=== PATIENT | male | born 1960 | race African-American/Black ===

== ENCOUNTER 2017-10-06 11:10 | Emergency (ER) | payer MEDICAID ==
[~2017-10-06] VITALS: Ht 182.9 cm; Wt 70.3 kg
[2017-10-06 11:57] LABS: Basophils # (auto) 0.1 uL; Eosinophils # (auto) 0 uL; Hemoglobin 11.2 g/dL (13.5-17.5); Monocytes # (auto) 1.2 uL; Neutrophils # (auto) 12.6 uL
[2017-10-06] MEDS: METOCLOPRAMIDE HCL 5MG/ml INJ 2ml VIAL IV ONE (11:57)
[2017-10-06] MEDS: SODIUM CHLORIDE 0.9% 1,000 ML IV ONE (11:57)
[2017-10-06] MEDS: HYDROmorphone HCL 2 MG/ML VL IV ONE (11:57)
[2017-10-06 11:58] LABS: Basophils % (auto) 0.7 % (0.0-2.0); Eosinophils % (auto) 0.2 % (0.0-7.0); Lymphocytes % (auto) 6.8 % (10.0-50.0); Mean Corpuscular Hemoglobin 27.1 pg (28.0-32.0); Mean Corpuscular Volume 84.5 fL (80.0-100.0); Mean Platelet Volume 6.8 fL (6.9-10.8); Neutrophils % (auto) 84.3 % (37.0-80.0); Platelet Count (auto) 360 10^3/uL (140-450); White Blood Cell 14.9 10^3/uL (4.4-10.8)
[2017-10-06 12:11] LABS: INR 1.19 (0.9-1.15); Partial Thromboplastin Time 28.2 sec (22.64-33.71)
[2017-10-06 12:17] LABS: Albumin 3.1 g/dL (3.4-5.0); Alkaline Phosphatase 429 U/L (45-117); Anion Gap 15 (5-15); Aspartate Aminotransferase 192 U/L (15-37); BUN/Creatinine Ratio 13.8; Bilirubin, Total 1.3 mg/dL (0.2-1.0); Blood Urea Nitrogen 11 mg/dL (7-18); Calcium 8.8 mg/dL (8.5-10.1); Carbon Dioxide 18 mmol/L (21-32); Chloride 105 mmol/L (98-107); GFR African American 129 mL/min; GFR Non-African American 107 mL/min; Glucose 103 mg/dL (74-106); Potassium 3.4 mmol/L (3.5-5.1); Sodium 138 mmol/L (136-145); Total Protein 8.5 g/dL (6.4-8.2)
[2017-10-06] MEDS: POTASSIUM CHL 10% (20 MEQ/15ML) 15ml ORAL SOLN PO ONE (12:39)
[2017-10-06 13:36] LABS: Urine Bilirubin Negative (Negative); Urine Blood 2+ /uL (Negative); Urine Color Yellow (Yellow); Urine Glucose Normal (Normal); Urine Ketone 1+ (Negative); Urine Mucus FEW (None Seen); Urine Nitrite Negative (Negative); Urine RBC 423 /hpf (0 - 3); Urine Squamous Epithelial Cell FEW /hpf (<5); Urine Urobilinogen Normal (Negative)
[2017-10-06] MEDS: IOHEXOL 350 MG/ML 100ML IJ ONE (13:40)
[2017-10-06 15:15] VITALS: BP 113/67
== END 2017-10-06 15:25 | disposition home or self-care (01) ==
LOC: ER 11:10
DX: C79.51 Secondary malignant neoplasm of bone (principal); C78.7 Secondary malignant neoplasm of liver and intrahepatic bile duct; E87.6 Hypokalemia; C61 Malignant neoplasm of prostate; J45.909 Unspecified asthma, uncomplicated; E44.1 Mild protein-calorie malnutrition; R74.8 Abnormal levels of other serum enzymes
CPT/HCPCS: 36415; 71010; 71275; 80053; 81001; 83735; 84484; 85025; 85379; 85610; 85730; 93005; 94761; 96374; 96375; 99285; J1170; J2765; J7030; Q9967

== ENCOUNTER 2017-10-23 08:17 | Inpatient (IN) | payer MEDICAID ==
[~2017-10-23] VITALS: Ht 190.5 cm; Wt 69.7 kg
[2017-10-23 10:09] LABS: Basophils # (auto) 0 uL; Basophils % (auto) 0.2 % (0.0-2.0); Eosinophils # (auto) 0 uL; Eosinophils % (auto) 0.2 % (0.0-7.0); Hemoglobin 7.4 g/dL (13.5-17.5); Monocytes # (auto) 2.2 uL; Monocytes % (auto) 12.7 % (0.0-12.0); White Blood Cell 17.1 10^3/uL (4.4-10.8)
[2017-10-23 10:12] LABS: Hematocrit 22.4 % (41.0-53.0); Mean Corpuscular Hemoglobin 26.8 pg (28.0-32.0); Mean Corpuscular Hgb Conc. 32.9 g/dL (32.0-36.0); Mean Corpuscular Volume 81.5 fL (80.0-100.0); Neutrophils # (auto) 13.9 uL; Neutrophils % (auto) 80.9 % (37.0-80.0); Platelet Count (auto) 548 10^3/uL (140-450); Red Blood Cells 2.74 10^6/uL (4.5-5.90); Red Cell Distribution Width 18.7 % (11.8-14.3)
[2017-10-23 10:24] LABS: Alanine Aminotransferase 10 U/L (16-61); Albumin 2.2 g/dL (3.4-5.0); Alkaline Phosphatase 382 U/L (45-117); Anion Gap 13 (5-15); Aspartate Aminotransferase 40 U/L (15-37); BUN/Creatinine Ratio 16.3; Blood Urea Nitrogen 8 mg/dL (7-18); Calcium 8.2 mg/dL (8.5-10.1); Carbon Dioxide 25 mmol/L (21-32); Chloride 96 mmol/L (98-107); GFR African American 227 mL/min; GFR Non-African American 188 mL/min; Glucose 65 mg/dL (74-106); Magnesium 2.5 mg/dL (1.6-2.6); Potassium 3.9 mmol/L (3.5-5.1); Sodium 134 mmol/L (136-145); Total Protein 7.9 g/dL (6.4-8.2)
[2017-10-23] MEDS ORDERED: SODIUM CHLORIDE 0.9% 1,000 ML IV ONE ×2 (10:55)
[2017-10-23] MEDS ORDERED: ONDANSETRON HCL 4 MG/2 ML VIAL IV ONE (11:00)
[2017-10-23] MEDS ORDERED: PIPERACILLIN-TAZOB 3.375GM 50 ML IV ONE (11:00)
[2017-10-23] MEDS ORDERED: HYDROmorphone HCL 2 MG/ML VL IV ONE (11:00)
[2017-10-23] MEDS ORDERED: NITROGLYCERIN 0.4 MG SL TAB SL PRN (11:30)
[2017-10-23] MEDS ORDERED: ALBUTEROL SULF 2.5 MG/0.5ML(0.5%) NEB SOLN NEB PRN (11:30)
[2017-10-23] MEDS ORDERED: VANCOMYCIN PER PHARMACY 0 MG IV SCH (11:30)
[2017-10-23] MEDS ORDERED: MORPHINE SULF INJ 2 MG/ML SYRINGE 1ML IV PRN ×2 (11:30)
[2017-10-23] MEDS ORDERED: TEMAZEPAM 15 MG CAP PO PRN (11:30)
[2017-10-23] MEDS ORDERED: VANCOMYCIN 1GM/250ML 250 ML IV ONE (11:30)
[2017-10-23] MEDS ORDERED: AZITHROMYCIN 500MG/ 250ML 250 ML IV ONE ×2 (11:30→12:15)
[2017-10-23] MEDS ORDERED: LACTULOSE 20Gm/30ML SOLN PO PRN (11:30)
[2017-10-23] MEDS ORDERED: IOHEXOL 300 MG/ML 100ML BOTTLE IJ ONE (11:31)
[2017-10-23] MEDS: SODIUM CHLORIDE 0.9% 1,000 ML IV SCH ×2 (13:23→20:09)
[2017-10-23 13:24] LABS: CRP High Sensitivity 26.82 mg/dL (< 0.3)
[2017-10-23 15:20] LABS: Urine Bacteria NONE SEEN /hpf (None Seen); Urine Blood 3+ /uL (Negative); Urine Mucus FEW (None Seen); Urine WBC 3 /hpf (0 - 3)
[2017-10-23 15:33] LABS: Urine Specific Gravity > 1.050 (1.001-1.035)
[2017-10-23] MEDS: HYDROmorphone HCL 2 MG/ML VL IV PRN ×2 (15:41→20:09)
[2017-10-23] MEDS: VANCOMYCIN 1GM/250ML 250 ML IV SCH (15:59)
[2017-10-23] MEDS ORDERED: ONDA4TAB5 PO (16:36)
[2017-10-23] MEDS ORDERED: OXY10CRT PO (16:36)
[2017-10-23] MEDS ORDERED: PRE5T PO (16:36)
[2017-10-23] MEDS ORDERED: ABIR250T PO (16:36)
[2017-10-23] MEDS ORDERED: MORP30TA PO (16:36)
[2017-10-23] MEDS ORDERED: PRO10T PO (16:36)
[2017-10-23] MEDS ORDERED: CIPR-217 PO (16:36)
[2017-10-23 16:57] VITALS: BP 113/65
[2017-10-23] MEDS: PIPERACILLIN-TAZOB 3.375GM 50 ML IV SCH ×2 (17:45→22:53)
[2017-10-23] MEDS: ALBUTEROL SULF 2.5 MG/0.5ML(0.5%) NEB SOLN NEB SCH (18:00)
[2017-10-23] MEDS: PROMETHAZINE HCL 25 MG/ML 1ML IV PRN (20:18)
[2017-10-23] MEDS: MORPHINE SULF 30 mg ER tab PO SCH (21:48)
[2017-10-23 22:13] VITALS: BP 120/70
[2017-10-24] VITALS (8 sets, daily range): BP systolic 104–116; BP diastolic 64–72
[2017-10-24] MEDS: ALBUTEROL SULF 2.5 MG/0.5ML(0.5%) NEB SOLN NEB SCH ×4 (00:49→18:44)
[2017-10-24] MEDS: PROMETHAZINE HCL 25 MG/ML 1ML IV PRN ×5 (00:49→18:31)
[2017-10-24] MEDS: HYDROmorphone HCL 2 MG/ML VL IV PRN ×7 (00:49→22:10)
[2017-10-24] MEDS: VANCOMYCIN 1GM/250ML 250 ML IV SCH ×2 (01:39→14:00)
[2017-10-24] MEDS: SODIUM CHLORIDE 0.9% 1,000 ML IV SCH ×3 (04:28→21:17)
[2017-10-24] MEDS: PIPERACILLIN-TAZOB 3.375GM 50 ML IV SCH ×4 (05:05→22:54)
[2017-10-24 07:14] LABS: Albumin 1.9 g/dL (3.4-5.0); BUN/Creatinine Ratio 12.5; Bilirubin, Total 0.6 mg/dL (0.2-1.0); Calcium 7.9 mg/dL (8.5-10.1); Potassium 3.5 mmol/L (3.5-5.1); Total Protein 7.1 g/dL (6.4-8.2)
[2017-10-24 07:56] LABS: Basophils # (auto) 0 uL; Basophils % (auto) 0.3 % (0.0-2.0); Eosinophils # (auto) 0.1 uL; Lymphocytes # (auto) 0.8 uL; Lymphocytes % (auto) 7.6 % (10.0-50.0); Monocytes # (auto) 1.4 uL
[2017-10-24 07:59] LABS: Eosinophils % (auto) 1.1 % (0.0-7.0); Hematocrit 20.8 % (41.0-53.0); Mean Corpuscular Hemoglobin 26.7 pg (28.0-32.0); Mean Corpuscular Hgb Conc. 32.7 g/dL (32.0-36.0); Mean Corpuscular Volume 81.8 fL (80.0-100.0); Monocytes % (auto) 13.1 % (0.0-12.0); Neutrophils # (auto) 8.3 uL; Neutrophils % (auto) 77.9 % (37.0-80.0); Platelet Count (auto) 492 10^3/uL (140-450); Red Blood Cells 2.54 10^6/uL (4.5-5.90); Red Cell Distribution Width 19.2 % (11.8-14.3); White Blood Cell 10.6 10^3/uL (4.4-10.8)
[2017-10-24 08:21] LABS: Hemoglobin 6.8 g/dL (13.5-17.5)
[2017-10-24] MEDS: MORPHINE SULF 30 mg ER tab PO SCH ×2 (10:06→21:17)
[2017-10-24] MEDS: AZITHROMYCIN 500MG/ 250ML 250 ML IV SCH (10:07)
[2017-10-24] MEDS: LORazepam 0.5 MG TAB PO PRN ×2 (10:22→16:04)
[2017-10-25] VITALS (11 sets, daily range): BP systolic 104–132; BP diastolic 67–83
[2017-10-25] MEDS: ALBUTEROL SULF 2.5 MG/0.5ML(0.5%) NEB SOLN NEB SCH ×4 (00:21→19:55)
[2017-10-25] MEDS: PROMETHAZINE HCL 25 MG/ML 1ML IV PRN ×3 (01:45→16:32)
[2017-10-25] MEDS: HYDROmorphone HCL 2 MG/ML VL IV PRN ×6 (01:45→20:09)
[2017-10-25] MEDS: VANCOMYCIN 1GM/250ML 250 ML IV SCH (01:45)
[2017-10-25] MEDS: SODIUM CHLORIDE 0.9% 1,000 ML IV SCH ×2 (04:16→12:30)
[2017-10-25] MEDS: PIPERACILLIN-TAZOB 3.375GM 50 ML IV SCH ×4 (05:06→23:45)
[2017-10-25 06:34] LABS: Eosinophils # (auto) 0.1 uL; Hematocrit 28.5 % (41.0-53.0); Hemoglobin 9.3 g/dL (13.5-17.5); Red Cell Distribution Width 18.1 % (11.8-14.3)
[2017-10-25 06:35] LABS: Basophils # (auto) 0.1 uL; Basophils % (auto) 0.4 % (0.0-2.0); Eosinophils % (auto) 0.5 % (0.0-7.0); Lymphocytes % (auto) 6.3 % (10.0-50.0); Mean Corpuscular Hemoglobin 26.8 pg (28.0-32.0); Mean Corpuscular Hgb Conc. 32.5 g/dL (32.0-36.0); Mean Corpuscular Volume 82.6 fL (80.0-100.0); Monocytes # (auto) 1.8 uL; Monocytes % (auto) 11.6 % (0.0-12.0); Neutrophils # (auto) 12.8 uL; Neutrophils % (auto) 81.2 % (37.0-80.0); Platelet Count (auto) 532 10^3/uL (140-450); Red Blood Cells 3.45 10^6/uL (4.5-5.90); White Blood Cell 15.8 10^3/uL (4.4-10.8)
[2017-10-25] MEDS: VANCOMYCIN 1,250 MG in D5W 5% 250 ML IV SCH ×2 (08:13→20:00)
[2017-10-25] MEDS: MORPHINE SULF 30 mg ER tab PO SCH ×2 (09:36→22:00)
[2017-10-25] MEDS: AZITHROMYCIN 500MG/ 250ML 250 ML IV SCH (09:37)
[2017-10-26] MEDS: ALBUTEROL SULF 2.5 MG/0.5ML(0.5%) NEB SOLN NEB SCH ×4 (00:10→18:40)
[2017-10-26] MEDS: PROMETHAZINE HCL 25 MG/ML 1ML IV PRN ×5 (00:22→22:09)
[2017-10-26] MEDS: HYDROmorphone HCL 2 MG/ML VL IV PRN ×7 (00:23→21:14)
[2017-10-26] MEDS: SODIUM CHLORIDE 0.9% 1,000 ML IV SCH ×3 (03:33→16:14)
[2017-10-26 04:59] VITALS: BP 121/70
[2017-10-26] MEDS: PIPERACILLIN-TAZOB 3.375GM 50 ML IV SCH (05:00)
[2017-10-26 06:33] LABS: Albumin 2.1 g/dL (3.4-5.0); BUN/Creatinine Ratio 3.6; Bilirubin, Total 1.2 mg/dL (0.2-1.0); Calcium 8.3 mg/dL (8.5-10.1); Potassium 3.2 mmol/L (3.5-5.1); Total Protein 7.9 g/dL (6.4-8.2)
[2017-10-26 07:44] VITALS: BP 113/68
[2017-10-26 08:00] VITALS: BP 113/68
[2017-10-26] MEDS: VANCOMYCIN 1,250 MG in D5W 5% 250 ML IV SCH (08:36)
[2017-10-26] MEDS: MORPHINE SULF 30 mg ER tab PO SCH ×2 (11:29→22:00)
[2017-10-26] MEDS: AZITHROMYCIN 500MG/ 250ML 250 ML IV SCH (11:29)
[2017-10-26 11:55] VITALS: BP 112/63
[2017-10-26] MEDS: metroNIDAZOLE 500 MG TAB PO SCH ×2 (13:44→22:10)
[2017-10-26 17:03] VITALS: BP 134/73
[2017-10-26] MEDS: BOOST PLUS 8 ounce PO SCH (19:00)
[2017-10-26 21:55] VITALS: BP 112/63
[2017-10-26] MEDS ORDERED: MORPHINE SULFATE 4 MG/ML SYR/VIAL ONE (22:43)
[2017-10-27] VITALS (7 sets, daily range): BP systolic 103–134; BP diastolic 63–79
[2017-10-27] MEDS: HYDROmorphone HCL 2 MG/ML VL IV PRN ×6 (01:09→18:04)
[2017-10-27] MEDS: SODIUM CHLORIDE 0.9% 1,000 ML IV SCH ×3 (02:16→11:22)
[2017-10-27] MEDS: PROMETHAZINE HCL 25 MG/ML 1ML IV PRN ×3 (03:59→18:03)
[2017-10-27] MEDS: metroNIDAZOLE 500 MG TAB PO SCH ×2 (06:15→13:14)
[2017-10-27 06:26] LABS: Basophils # (auto) 0 uL; Basophils % (auto) 0.2 % (0.0-2.0); Eosinophils # (auto) 0.1 uL; Hematocrit 29.1 % (41.0-53.0); Monocytes # (auto) 1.6 uL
[2017-10-27 06:29] LABS: Eosinophils % (auto) 0.8 % (0.0-7.0); Hemoglobin 9.1 g/dL (13.5-17.5); Lymphocytes # (auto) 0.9 uL; Mean Corpuscular Hemoglobin 26.3 pg (28.0-32.0); Mean Corpuscular Hgb Conc. 31.4 g/dL (32.0-36.0); Mean Corpuscular Volume 83.9 fL (80.0-100.0); Neutrophils # (auto) 9.8 uL; Nucleated Red Blood Cells % 0.1 %; Platelet Count (auto) 454 10^3/uL (140-450); Red Blood Cells 3.47 10^6/uL (4.5-5.90); Red Cell Distribution Width 18.4 % (11.8-14.3); White Blood Cell 12.4 10^3/uL (4.4-10.8)
[2017-10-27] MEDS: ALBUTEROL SULF 2.5 MG/0.5ML(0.5%) NEB SOLN NEB SCH ×3 (06:48→13:41)
[2017-10-27 07:42] LABS: Potassium 3.6 mmol/L (3.5-5.1)
[2017-10-27 07:43] LABS: Albumin 2.1 g/dL (3.4-5.0); Bilirubin, Total 1.1 mg/dL (0.2-1.0); Calcium 8.2 mg/dL (8.5-10.1); Total Protein 7.9 g/dL (6.4-8.2)
[2017-10-27] MEDS: BOOST PLUS 8 ounce PO SCH ×2 (08:00→18:23)
[2017-10-27] MEDS ORDERED: MORPHINE SULFATE 10 MG/ML INJ 1ML SDV IV PRN ×2 (09:15)
[2017-10-27] MEDS: MORPHINE SULF 30 mg ER tab PO SCH (10:00)
== END 2017-10-27 20:50 | disposition home or self-care (01) | DRG 720 ==
LOC: ER 08:17 → EDUNIT# 08:17 → TELE 08:18 → TELE-EAST 15:24
PROVIDERS: ADMIT Internal Medicine; ATTEND Internal Medicine
PROC: 30233N1 Transfusion of Nonautologous Red Blood Cells into Peripheral Vein, Percutaneous Approach (ICD-10-PCS; principal; 2017-10-24)
DX: A41.9 Sepsis, unspecified organism (principal); E43 Unspecified severe protein-calorie malnutrition; C78.00 Secondary malignant neoplasm of unspecified lung; A04.72 Enterocolitis due to Clostridium difficile, not specified as recurrent; C61 Malignant neoplasm of prostate; C78.7 Secondary malignant neoplasm of liver and intrahepatic bile duct; D64.9 Anemia, unspecified; C79.51 Secondary malignant neoplasm of bone; E87.1 Hypo-osmolality and hyponatremia; J45.909 Unspecified asthma, uncomplicated; N50.819 Testicular pain, unspecified; R31.0 Gross hematuria; Z81.8 Family history of other mental and behavioral disorders; Z82.3 Family history of stroke; Z82.49 Family history of ischemic heart disease and other diseases of the circulatory system; Z83.3 Family history of diabetes mellitus; Z85.46 Personal history of malignant neoplasm of prostate; Z88.5 Allergy status to narcotic agent; Z68.1 Body mass index [BMI] 19.9 or less, adult
CPT/HCPCS: 36415; 71010; 74177; 78306; 80053; 80202; 81001; 82150; 82270; 82378; 83605; 83690; 83735; 84154; 84484; 85025; 85652; 86141; 86850; 86900; 86901; 86920; 87040; 87081; 87086; 87493; 93005; 94640; 96365; 96367; 96372; 99291; J1642; J2405; J2543; J7060

== ENCOUNTER 2017-12-04 07:20 | Inpatient (IN) | payer MEDICAID ==
[~2017-12-04] VITALS: Ht 182.9 cm; Wt 65.2 kg
[~2017-12-04 07:20] MED LIST: ABIR250T PO; CIPR-217 PO; MORP30TA PO; ONDA4TAB5 PO; OXY10CRT PO; PRE5T PO; PRO10T PO
[2017-12-04 07:58] LABS: Basophils # (auto) 0.1 uL; Basophils % (auto) 0.7 % (0.0-2.0); Eosinophils # (auto) 0.1 uL; Hemoglobin 8.2 g/dL (13.5-17.5); Mean Corpuscular Volume 83.7 fL (80.0-100.0); Monocytes # (auto) 1.2 uL
[2017-12-04 08:00] LABS: Eosinophils % (auto) 0.7 % (0.0-7.0); Hematocrit 26.1 % (41.0-53.0); Lymphocytes # (auto) 1.2 uL; Lymphocytes % (auto) 8.3 % (10.0-50.0); Mean Corpuscular Hemoglobin 26.2 pg (28.0-32.0); Mean Corpuscular Hgb Conc. 31.3 g/dL (32.0-36.0); Monocytes % (auto) 8.7 % (0.0-12.0); Neutrophils # (auto) 11.6 uL; Neutrophils % (auto) 81.6 % (37.0-80.0); Platelet Count (auto) 590 10^3/uL (140-450); Red Blood Cells 3.11 10^6/uL (4.5-5.90); Red Cell Distribution Width 18.7 % (11.8-14.3); White Blood Cell 14.2 10^3/uL (4.4-10.8)
[2017-12-04 08:14] LABS: Alanine Aminotransferase 18 U/L (16-61); Albumin 1.7 g/dL (3.4-5.0); Anion Gap 11 (5-15); Aspartate Aminotransferase 97 U/L (15-37); BUN/Creatinine Ratio 26.5; Blood Urea Nitrogen 39 mg/dL (7-18); Calcium 9.2 mg/dL (8.5-10.1); Carbon Dioxide 25 mmol/L (21-32); Chloride 97 mmol/L (98-107); GFR African American 64 mL/min; GFR Non-African American 53 mL/min; Glucose 96 mg/dL (74-106); Magnesium 2.6 mg/dL (1.6-2.6); Potassium 4.4 mmol/L (3.5-5.1); Sodium 133 mmol/L (136-145)
[2017-12-04 08:29] LABS: Alkaline Phosphatase 933 U/L (45-117); Bilirubin, Total 1.2 mg/dL (0.2-1.0); Total Protein 8.2 g/dL (6.4-8.2)
[2017-12-04] MEDS ORDERED: SODIUM CHLORIDE 0.9% 1,000 ML IV ONE (08:46)
[2017-12-04] MEDS ORDERED: HYDROmorphone HCL 2 MG/ML VL IV ONE (09:00)
[2017-12-04] MEDS ORDERED: METOCLOPRAMIDE HCL 5MG/ml INJ 2ml VIAL IV ONE (09:00)
[2017-12-04] MEDS ORDERED: MORPHINE SULFATE 4 MG/ML SYR/VIAL IV ONE ×2 (09:45→11:20)
[2017-12-04] MEDS ORDERED: ONDANSETRON HCL 4 MG/2 ML VIAL ONE (10:03)
[2017-12-04] MEDS ORDERED: ONDANSETRON HCL 4 MG/2 ML VIAL IV ONE (10:15)
[2017-12-04 10:54] LABS: Urine Bacteria NONE SEEN /hpf (None Seen); Urine Blood Negative /uL (Negative); Urine Specific Gravity 1.017 (1.001-1.035); Urine WBC 1 /hpf (0 - 3)
[2017-12-04] MEDS ORDERED: MORPHINE SULFATE 4 MG/ML SYR/VIAL IV PRN ×2 (15:00)
[2017-12-04] MEDS ORDERED: ALBUTEROL SULF 2.5 MG/0.5ML(0.5%) NEB SOLN NEB PRN (15:00)
[2017-12-04] MEDS ORDERED: LORazepam 0.5 MG TAB PO PRN (15:00)
[2017-12-04] MEDS ORDERED: TEMAZEPAM 15 MG CAP PO PRN (15:00)
[2017-12-04] MEDS ORDERED: NITROGLYCERIN 0.4 MG SL TAB SL PRN (15:00)
[2017-12-04] MEDS ORDERED: MORPHINE SULFATE 4 MG/ML SYR/VIAL ONE (15:01)
[2017-12-04] MEDS ORDERED: PROMETHAZINE HCL 25 MG/ML 1ML ONE (15:02)
[2017-12-04] MEDS: PROMETHAZINE HCL 25 MG/ML 1ML IV PRN (15:14)
[2017-12-04] MEDS: MORPHINE SULFATE 4 MG/ML SYR/VIAL IV PRN ×2 (15:15→19:58)
[2017-12-04] MEDS ORDERED: predniSONE 5 MG TAB PO ONE (15:15)
[2017-12-04] MEDS ORDERED: ASPirin 81 mg TAB PO ONE (15:30)
[2017-12-04] MEDS ORDERED: LEVOFLOXACIN 500MG 100 ML IV ONE (15:30)
[2017-12-04] MEDS ORDERED: PANTOPRAZOLE 40 MG TAB PO ONE (15:30)
[2017-12-04 15:31] LABS: Alcohol, Urine < 3.0 mg/dL (0-5); Amphetamine Screen, Urine NEGATIVE (NEGATIVE); Barbiturate Scree,Urine NEGATIVE (NEGATIVE); Benzodiazephine Screen, Urine NEGATIVE (NEGATIVE); Cannabinoid Screen, Urine NEGATIVE (NEGATIVE); Cocaine Screen, Urine NEGATIVE (NEGATIVE); Opiate Scree,Urine NEGATIVE (NEGATIVE); Phencyclidine Screen, Urine NEGATIVE (NEGATIVE)
[2017-12-04 15:34] LABS: Amylase 22 U/L (25-115); Lipase 62 U/L (73-393)
[2017-12-04 15:35] LABS: CRP High Sensitivity > 19.0 mg/dL (< 0.3)
[2017-12-04 17:00] VITALS: BP 118/73
[2017-12-04] MEDS: ALBUTEROL SULF 2.5 MG/0.5ML(0.5%) NEB SOLN NEB SCH (19:00)
[2017-12-04 21:52] VITALS: BP 109/62
[2017-12-04] MEDS ORDERED: PATIENTS OWN MEDICATION (Morphine Sulfate 1 TAB) PO SCH (22:00)
[2017-12-04] MEDS: MORPHINE SULF 30 mg ER tab PO SCH (22:00)
[2017-12-05 02:15] VITALS: BP 109/62
[2017-12-05] MEDS: MORPHINE SULFATE 4 MG/ML SYR/VIAL IV PRN ×4 (03:02→18:32)
[2017-12-05 04:47] VITALS: BP 110/69
[2017-12-05] MEDS: ALBUTEROL SULF 2.5 MG/0.5ML(0.5%) NEB SOLN NEB SCH ×4 (07:44→18:35)
[2017-12-05 08:04] LABS: Cholesterol 125 mg/dL (< 200); HDL Cholesterol 15 mg/dL (40-59); LDL Cholesterol 85 mg/dL (< 100); Triglycerides 185 mg/dL (< 150)
[2017-12-05] MEDS: PROMETHAZINE HCL 25 MG/ML 1ML IV PRN (08:16)
[2017-12-05 09:00] VITALS: BP 114/70
[2017-12-05] MEDS: PANTOPRAZOLE 40 MG TAB PO SCH (09:32)
[2017-12-05] MEDS: MORPHINE SULF 30 mg ER tab PO SCH (09:32)
[2017-12-05] MEDS ORDERED: ASPirin 81 mg TAB PO SCH (10:00)
[2017-12-05] MEDS ORDERED: LEVOFLOXACIN 500MG 100 ML IV SCH (10:00)
[2017-12-05] MEDS ORDERED: predniSONE 5 MG TAB PO SCH (10:00)
[2017-12-05] MEDS ORDERED: ZYTIGA 250 MG PO SCH (10:00)
[2017-12-05 12:43] VITALS: BP 122/71
[2017-12-05] MEDS ORDERED: GADOPENTETATE DIMEGLUMINE (10MMOL/20 ML) VIAL IV ONE (13:51)
[2017-12-05] MEDS: SODIUM CHLORIDE 0.9% 1,000 ML IV SCH (14:30)
[2017-12-05] MEDS ORDERED: LORATADINE 10 MG TAB PO ONE (16:15)
[2017-12-05 16:59] VITALS: BP 111/72
[2017-12-05] MEDS: predniSONE 5 MG TAB PO SCH (18:33)
[2017-12-05] MEDS: SENNA 8.6 MG TAB PO SCH (21:37)
[2017-12-05 21:40] VITALS: BP 121/78
[2017-12-05] MEDS: FLUTICASONE PROP NASAL SPR 0.05 % (50MCG) 16GM EACHNOSTRI SCH (21:43)
[2017-12-05] MEDS ORDERED: MORPHINE SULF 30 mg ER tab PO SCH (22:00)
[2017-12-06] VITALS (13 sets, daily range): BP systolic 116–130; BP diastolic 72–89
[2017-12-06] MEDS: SODIUM CHLORIDE 0.9% 1,000 ML IV SCH ×2 (01:18→11:05)
[2017-12-06] MEDS: MORPHINE SULFATE 4 MG/ML SYR/VIAL IV PRN ×3 (01:23→19:58)
[2017-12-06] MEDS: PROMETHAZINE HCL 25 MG/ML 1ML IV PRN ×2 (02:42→15:19)
[2017-12-06 06:41] LABS: Hemoglobin 7.5 g/dL (13.5-17.5)
[2017-12-06 06:43] LABS: Hematocrit 23.4 % (41.0-53.0); Mean Corpuscular Hemoglobin 27.2 pg (28.0-32.0); Mean Corpuscular Hgb Conc. 32.2 g/dL (32.0-36.0); Mean Corpuscular Volume 84.7 fL (80.0-100.0); Platelet Count (auto) 503 10^3/uL (140-450); Red Blood Cells 2.76 10^6/uL (4.5-5.90); Red Cell Distribution Width 18.4 % (11.8-14.3); White Blood Cell 9.9 10^3/uL (4.4-10.8)
[2017-12-06 07:14] LABS: Band Neutrophils % (manual) 0; Basophils % (manual) 0 (0.0-2.0); Blast Cells 0; Eosinophils % (manual) 0 (0-7); Myelocytes % 0; Promyelocytes % 0; Reactive Lymphocytes 0
[2017-12-06 07:27] LABS: Albumin 1.7 g/dL (3.4-5.0); BUN/Creatinine Ratio 25.6; Bilirubin, Total 0.9 mg/dL (0.2-1.0); Calcium 8.6 mg/dL (8.5-10.1); Total Protein 8.1 g/dL (6.4-8.2)
[2017-12-06] MEDS: ALBUTEROL SULF 2.5 MG/0.5ML(0.5%) NEB SOLN NEB SCH ×4 (07:37→19:34)
[2017-12-06 07:48] LABS: Lymphocytes % (manual) 10 (10.0-50.0); Metamyelocytes % 1; Monocytes % (manual) 6 (0-12)
[2017-12-06 07:49] LABS: Potassium 5.7 mmol/L (3.5-5.1)
[2017-12-06] MEDS: predniSONE 5 MG TAB PO SCH ×2 (08:23→18:22)
[2017-12-06] MEDS: ZYTIGA 250 MG PO SCH (11:05)
[2017-12-06] MEDS: LORATADINE 10 MG TAB PO SCH (11:05)
[2017-12-06] MEDS: FLUTICASONE PROP NASAL SPR 0.05 % (50MCG) 16GM EACHNOSTRI SCH ×2 (11:05→22:21)
[2017-12-06] MEDS: PANTOPRAZOLE 40 MG TAB PO SCH (11:06)
[2017-12-06] MEDS: DOCUSATE SOD 100 MG CAP PO SCH ×2 (11:06→22:16)
[2017-12-06] MEDS: MORPHINE SULF 30 mg ER tab PO SCH ×2 (14:20→22:15)
[2017-12-06] MEDS: SENNA 8.6 MG TAB PO SCH (22:15)
[2017-12-06] MEDS: PRO-STAT 64 30ML PO SCH (22:15)
[2017-12-06] MEDS: BOOST PLUS 8 ounce PO SCH (22:17)
[2017-12-07] MEDS: ALBUTEROL SULF 2.5 MG/0.5ML(0.5%) NEB SOLN NEB SCH ×4 (00:55→19:33)
[2017-12-07 05:19] VITALS: BP 139/88
[2017-12-07 05:48] LABS: Red Cell Distribution Width 17.6 % (11.8-14.3)
[2017-12-07 05:51] LABS: Hematocrit 29.1 % (41.0-53.0); Hemoglobin 9.6 g/dL (13.5-17.5); Mean Corpuscular Hemoglobin 27.6 pg (28.0-32.0); Mean Corpuscular Hgb Conc. 32.9 g/dL (32.0-36.0); Mean Corpuscular Volume 83.7 fL (80.0-100.0); Platelet Count (auto) 464 10^3/uL (140-450); Red Blood Cells 3.47 10^6/uL (4.5-5.90); White Blood Cell 10.9 10^3/uL (4.4-10.8)
[2017-12-07 06:09] LABS: BUN/Creatinine Ratio 21.5; Calcium 8.7 mg/dL (8.5-10.1); Potassium 4.3 mmol/L (3.5-5.1)
[2017-12-07 06:15] LABS: Band Neutrophils % (manual) 0; Basophils % (manual) 0 (0.0-2.0); Blast Cells 0; Eosinophils % (manual) 0 (0-7); Metamyelocytes % 0; Myelocytes % 0; Promyelocytes % 0; Reactive Lymphocytes 0
[2017-12-07] MEDS: MORPHINE SULF 30 mg ER tab PO SCH ×4 (06:22→21:46)
[2017-12-07] MEDS: SODIUM CHLORIDE 0.9% 1,000 ML IV SCH ×2 (06:40→21:46)
[2017-12-07 07:32] VITALS: BP 146/88
[2017-12-07] MEDS: DOCUSATE SOD 100 MG CAP PO SCH ×2 (09:23→21:43)
[2017-12-07] MEDS: PANTOPRAZOLE 40 MG TAB PO SCH (09:23)
[2017-12-07] MEDS: predniSONE 5 MG TAB PO SCH ×2 (09:23→18:06)
[2017-12-07] MEDS: LORATADINE 10 MG TAB PO SCH (09:23)
[2017-12-07] MEDS: BOOST PLUS 8 ounce PO SCH ×2 (09:24→21:45)
[2017-12-07] MEDS: PRO-STAT 64 30ML PO SCH ×2 (09:24→21:46)
[2017-12-07] MEDS: ZYTIGA 250 MG PO SCH (09:25)
[2017-12-07] MEDS: PROMETHAZINE HCL 25 MG/ML 1ML IV PRN (09:34)
[2017-12-07] MEDS: MORPHINE SULFATE 4 MG/ML SYR/VIAL IV PRN (09:36)
[2017-12-07 10:56] LABS: Lymphocytes % (manual) 10 (10.0-50.0); Monocytes % (manual) 16 (0-12)
[2017-12-07] MEDS: FLUTICASONE PROP NASAL SPR 0.05 % (50MCG) 16GM EACHNOSTRI SCH ×2 (11:09→21:44)
[2017-12-07 11:39] VITALS: BP 143/85
[2017-12-07 16:00] VITALS: BP 144/96
[2017-12-07 20:58] VITALS: BP 144/96
[2017-12-07] MEDS: SENNA 8.6 MG TAB PO SCH (21:43)
[2017-12-07 22:00] VITALS: BP 130/91
[2017-12-08] MEDS: ALBUTEROL SULF 2.5 MG/0.5ML(0.5%) NEB SOLN NEB SCH ×4 (00:49→19:37)
[2017-12-08 05:00] VITALS: BP 133/87
[2017-12-08] MEDS: MORPHINE SULF 30 mg ER tab PO SCH ×3 (05:57→21:43)
[2017-12-08] MEDS: predniSONE 5 MG TAB PO SCH ×2 (08:12→18:11)
[2017-12-08 09:00] VITALS: BP 123/75
[2017-12-08] MEDS: PANTOPRAZOLE 40 MG TAB PO SCH (09:04)
[2017-12-08] MEDS: FLUTICASONE PROP NASAL SPR 0.05 % (50MCG) 16GM EACHNOSTRI SCH ×2 (09:04→21:42)
[2017-12-08] MEDS: DOCUSATE SOD 100 MG CAP PO SCH ×2 (09:04→21:39)
[2017-12-08] MEDS: LORATADINE 10 MG TAB PO SCH (09:04)
[2017-12-08] MEDS: ZYTIGA 250 MG PO SCH (09:05)
[2017-12-08] MEDS: BOOST PLUS 8 ounce PO SCH ×2 (09:05→21:43)
[2017-12-08] MEDS: PRO-STAT 64 30ML PO SCH ×2 (09:05→21:43)
[2017-12-08] MEDS: PROMETHAZINE HCL 25 MG/ML 1ML IV PRN ×2 (10:37→18:43)
[2017-12-08] MEDS: MORPHINE SULFATE 4 MG/ML SYR/VIAL IV PRN ×2 (10:38→18:44)
[2017-12-08] MEDS: SODIUM CHLORIDE 0.9% 1,000 ML IV SCH (12:18)
[2017-12-08 13:00] VITALS: BP 130/81
[2017-12-08 17:00] VITALS: BP 130/78
[2017-12-08] MEDS ORDERED: MILK OF MAGNESIA 30ML SUSP PO PRN (19:30)
[2017-12-08] MEDS: SENNA 8.6 MG TAB PO SCH (21:38)
[2017-12-08 22:00] VITALS: BP 128/77
[2017-12-09] MEDS: ALBUTEROL SULF 2.5 MG/0.5ML(0.5%) NEB SOLN NEB SCH ×4 (01:22→19:28)
[2017-12-09 05:00] VITALS: BP 137/90
[2017-12-09] MEDS: MORPHINE SULF 30 mg ER tab PO SCH ×3 (05:01→22:00)
[2017-12-09] MEDS: SODIUM CHLORIDE 0.9% 1,000 ML IV SCH ×2 (05:03→20:35)
[2017-12-09] MEDS: oxyCODONE ER 10 MG TAB PO PRN ×2 (07:53→15:18)
[2017-12-09] MEDS: MORPHINE SULFATE 4 MG/ML SYR/VIAL IV PRN ×8 (08:25→22:45)
[2017-12-09 08:50] VITALS: BP 134/87
[2017-12-09] MEDS: PROMETHAZINE HCL 25 MG/ML 1ML IV PRN ×3 (10:47→20:32)
[2017-12-09 11:42] VITALS: BP 120/76
[2017-12-09] MEDS: BOOST PLUS 8 ounce PO SCH ×2 (12:14→22:02)
[2017-12-09] MEDS: predniSONE 5 MG TAB PO SCH ×2 (12:14→18:00)
[2017-12-09] MEDS: ZYTIGA 250 MG PO SCH (12:14)
[2017-12-09] MEDS: FLUTICASONE PROP NASAL SPR 0.05 % (50MCG) 16GM EACHNOSTRI SCH ×2 (12:14→22:01)
[2017-12-09] MEDS: PRO-STAT 64 30ML PO SCH ×2 (12:15→22:02)
[2017-12-09] MEDS: LORATADINE 10 MG TAB PO SCH (12:15)
[2017-12-09] MEDS: DOCUSATE SOD 100 MG CAP PO SCH ×2 (12:15→22:01)
[2017-12-09] MEDS: PANTOPRAZOLE 40 MG TAB PO SCH (12:15)
[2017-12-09 16:00] VITALS: BP 130/80
[2017-12-09] MEDS: SENNA 8.6 MG TAB PO SCH (22:01)
[2017-12-09 22:28] VITALS: BP 137/85
[2017-12-10] MEDS: ALBUTEROL SULF 2.5 MG/0.5ML(0.5%) NEB SOLN NEB SCH ×4 (00:54→19:47)
[2017-12-10] MEDS: PROMETHAZINE HCL 25 MG/ML 1ML IV PRN ×2 (01:19→10:29)
[2017-12-10] MEDS: MORPHINE SULFATE 4 MG/ML SYR/VIAL IV PRN ×9 (01:19→21:55)
[2017-12-10 04:58] VITALS: BP 134/85
[2017-12-10] MEDS: MORPHINE SULF 30 mg ER tab PO SCH (06:00)
[2017-12-10] MEDS: oxyCODONE ER 10 MG TAB PO PRN (07:35)
[2017-12-10 08:38] VITALS: BP 139/74
[2017-12-10] MEDS ORDERED: MORPHINE SULFATE 4 MG/ML SYR/VIAL IV PRN (09:45)
[2017-12-10] MEDS: FLUTICASONE PROP NASAL SPR 0.05 % (50MCG) 16GM EACHNOSTRI SCH ×2 (10:00→21:15)
[2017-12-10] MEDS: ZYTIGA 250 MG PO SCH (10:00)
[2017-12-10] MEDS: DOCUSATE SOD 100 MG CAP PO SCH ×2 (10:00→21:15)
[2017-12-10] MEDS: BOOST PLUS 8 ounce PO SCH ×2 (10:00→21:09)
[2017-12-10] MEDS: PRO-STAT 64 30ML PO SCH ×2 (10:00→21:09)
[2017-12-10] MEDS: OXYCODONE HCL 5MG TAB PO PRN ×2 (10:21→17:40)
[2017-12-10] MEDS: PYRIDOXINE HCL 50 MG TAB PO SCH (10:29)
[2017-12-10] MEDS: PANTOPRAZOLE 40 MG TAB PO SCH (10:29)
[2017-12-10] MEDS: predniSONE 5 MG TAB PO SCH ×2 (10:29→17:44)
[2017-12-10] MEDS: LORATADINE 10 MG TAB PO SCH (10:30)
[2017-12-10] MEDS: MECLIZINE HCL 25 MG TAB PO SCH ×2 (10:30→21:15)
[2017-12-10 12:18] VITALS: BP 134/78
[2017-12-10] MEDS: SODIUM CHLORIDE 0.9% 1,000 ML IV SCH (12:56)
[2017-12-10 17:23] VITALS: BP 123/76
[2017-12-10 19:50] VITALS: BP 123/76
[2017-12-10] MEDS: SENNA 8.6 MG TAB PO SCH (21:16)
[2017-12-10 22:00] VITALS: BP 108/66
[2017-12-11] MEDS: ALBUTEROL SULF 2.5 MG/0.5ML(0.5%) NEB SOLN NEB SCH ×4 (00:17→19:29)
[2017-12-11] MEDS: MORPHINE SULFATE 4 MG/ML SYR/VIAL IV PRN ×6 (01:22→21:56)
[2017-12-11 05:00] VITALS: BP 117/64
[2017-12-11] MEDS: SODIUM CHLORIDE 0.9% 1,000 ML IV SCH ×2 (06:18→23:32)
[2017-12-11] MEDS: LORATADINE 10 MG TAB PO SCH (08:46)
[2017-12-11] MEDS: MECLIZINE HCL 25 MG TAB PO SCH ×2 (08:47→21:20)
[2017-12-11] MEDS: predniSONE 5 MG TAB PO SCH ×2 (08:47→17:48)
[2017-12-11] MEDS: PANTOPRAZOLE 40 MG TAB PO SCH (08:47)
[2017-12-11] MEDS: PYRIDOXINE HCL 50 MG TAB PO SCH (08:48)
[2017-12-11] MEDS: DOCUSATE SOD 100 MG CAP PO SCH ×2 (08:48→21:21)
[2017-12-11] MEDS: FLUTICASONE PROP NASAL SPR 0.05 % (50MCG) 16GM EACHNOSTRI SCH ×2 (08:50→21:20)
[2017-12-11] MEDS: PROMETHAZINE HCL 25 MG/ML 1ML IV PRN (08:59)
[2017-12-11 09:00] VITALS: BP 123/69
[2017-12-11] MEDS: PRO-STAT 64 30ML PO SCH ×2 (10:00→21:21)
[2017-12-11] MEDS ORDERED: fentaNYL 50MCG/HR 50 MCG/HR PAT TD SCH (10:30)
[2017-12-11] MEDS: BOOST PLUS 8 ounce PO SCH ×2 (10:41→21:21)
[2017-12-11] MEDS: ZYTIGA 250 MG PO SCH (11:14)
[2017-12-11 13:00] VITALS: BP 116/56
[2017-12-11 17:00] VITALS: BP 112/60
[2017-12-11] MEDS: SENNA 8.6 MG TAB PO SCH (21:21)
[2017-12-11 21:49] VITALS: BP 133/74
[2017-12-12] MEDS: ALBUTEROL SULF 2.5 MG/0.5ML(0.5%) NEB SOLN NEB SCH ×3 (00:19→12:00)
[2017-12-12] MEDS: MORPHINE SULFATE 4 MG/ML SYR/VIAL IV PRN ×7 (00:53→17:12)
[2017-12-12 04:48] VITALS: BP 115/61
[2017-12-12] MEDS: PYRIDOXINE HCL 50 MG TAB PO SCH (08:56)
[2017-12-12] MEDS: PANTOPRAZOLE 40 MG TAB PO SCH (08:57)
[2017-12-12] MEDS: predniSONE 5 MG TAB PO SCH (08:57)
[2017-12-12] MEDS: LORATADINE 10 MG TAB PO SCH (08:57)
[2017-12-12] MEDS: MECLIZINE HCL 25 MG TAB PO SCH (08:57)
[2017-12-12] MEDS: DOCUSATE SOD 100 MG CAP PO SCH (08:57)
[2017-12-12 08:58] VITALS: BP 122/64
[2017-12-12] MEDS: BOOST PLUS 8 ounce PO SCH (08:58)
[2017-12-12] MEDS: FLUTICASONE PROP NASAL SPR 0.05 % (50MCG) 16GM EACHNOSTRI SCH (08:58)
[2017-12-12] MEDS: PRO-STAT 64 30ML PO SCH (10:00)
[2017-12-12] MEDS: ZYTIGA 250 MG PO SCH (11:09)
[2017-12-12] MEDS ORDERED: TEMAZEPAM 15 MG CAP PO PRN (12:00)
[2017-12-12] MEDS ORDERED: DULoxetine HCL 30 MG CAP PO ONE (12:00)
[2017-12-12 12:09] VITALS: BP 118/64
[2017-12-12 14:40] VITALS: BP 118/64
[2017-12-12] MEDS ORDERED: LORazepam 0.5 MG TAB PO PRN (15:00)
[2017-12-12] MEDS: SODIUM CHLORIDE 0.9% 1,000 ML IV SCH (16:00)
[2017-12-12 17:17] VITALS: BP 120/62
[2017-12-13] MEDS ORDERED: DULoxetine HCL 30 MG CAP PO SCH (10:00)
[2017-12-14] MEDS ORDERED: fentaNYL 75MCG/HR 75 MCG/HR PAT TD SCH (12:00)
== END 2017-12-12 17:30 | disposition hospice, home (50) | DRG 111 ==
LOC: EDBD 07:20 → EDUNIT# 07:20 → ER 07:20 → TELE 07:21 → TELE-EAST 16:38 → EAST 12-10 09:38
PROVIDERS: ADMIT Internal Medicine; ATTEND Internal Medicine
PROC: 30233N1 Transfusion of Nonautologous Red Blood Cells into Peripheral Vein, Percutaneous Approach (ICD-10-PCS; principal; 2017-12-06)
DX: H81.10 Benign paroxysmal vertigo, unspecified ear (principal); N17.0 Acute kidney failure with tubular necrosis; E43 Unspecified severe protein-calorie malnutrition; C78.01 Secondary malignant neoplasm of right lung; C61 Malignant neoplasm of prostate; C78.02 Secondary malignant neoplasm of left lung; E86.0 Dehydration; C78.7 Secondary malignant neoplasm of liver and intrahepatic bile duct; Z66 Do not resuscitate; G89.3 Neoplasm related pain (acute) (chronic); W19.XXXA Unspecified fall, initial encounter; J45.909 Unspecified asthma, uncomplicated; D63.8 Anemia in other chronic diseases classified elsewhere; E78.5 Hyperlipidemia, unspecified; Z81.8 Family history of other mental and behavioral disorders; Z82.3 Family history of stroke; Z82.49 Family history of ischemic heart disease and other diseases of the circulatory system; Z83.3 Family history of diabetes mellitus; Z88.5 Allergy status to narcotic agent; Z88.8 Allergy status to other drugs, medicaments and biological substances; Z68.1 Body mass index [BMI] 19.9 or less, adult; Y93.89 Activity, other specified; Y92.89 Other specified places as the place of occurrence of the external cause
CPT/HCPCS: 36415; 70553; 71045; 80048; 80053; 80061; 80307; 81001; 82150; 82550; 83690; 83735; 84132; 84484; 85007; 85025; 85027; 85379; 86141; 86850; 86900; 86901; 86920; 93005; 94640; 96374; 96375; 96376; J1642; J1956; J2405

== ENCOUNTER 2018-02-18 10:12 | Inpatient (IN) | payer MEDICAID ==
[~2018-02-18] VITALS: Ht 182.9 cm; Wt 36.2 kg
[~2018-02-18 10:12] MED LIST changes: -CIPR-217 PO; -MORP30TA PO; -ONDA4TAB5 PO; -OXY10CRT PO; -PRO10T PO
[2018-02-18] MEDS ORDERED: SODIUM CHLORIDE 0.9% 1,000 ML IV ONE (12:12)
[2018-02-18] MEDS ORDERED: MORPHINE SULFATE 8mg/ml INJ SDV IV ONE (12:30)
[2018-02-18 12:50] LABS: Basophils # (auto) 0.2 uL; Eosinophils # (auto) 0 uL; Hemoglobin 7.9 g/dL (13.5-17.5); Monocytes # (auto) 0.8 uL; Nucleated Red Blood Cells % 0.1 %
[2018-02-18 12:52] LABS: Basophils % (auto) 1.7 % (0.0-2.0); Hematocrit 24.4 % (41.0-53.0); Lymphocytes # (auto) 1.2 uL; Lymphocytes % (auto) 11.4 % (10.0-50.0); Mean Corpuscular Hemoglobin 29.6 pg (28.0-32.0); Mean Corpuscular Hgb Conc. 32.3 g/dL (32.0-36.0); Mean Corpuscular Volume 91.7 fL (80.0-100.0); Monocytes % (auto) 7.7 % (0.0-12.0); Neutrophils % (auto) 79.2 % (37.0-80.0); Platelet Count (auto) 422 10^3/uL (140-450); Red Blood Cells 2.66 10^6/uL (4.5-5.90); Red Cell Distribution Width 17.9 % (11.8-14.3); White Blood Cell 10.1 10^3/uL (4.4-10.8)
[2018-02-18] MEDS ORDERED: SODIUM CHLORIDE 0.9% 1,000 ML IV SCH (13:00)
[2018-02-18] MEDS ORDERED: NITROGLYCERIN 0.4 MG SL TAB SL PRN (13:00)
[2018-02-18] MEDS ORDERED: MORPHINE SULFATE 8mg/ml INJ SDV IV PRN (13:00)
[2018-02-18] MEDS ORDERED: LORazepam 2MG/ML-1ML VIAL IV PRN (13:00)
[2018-02-18 13:08] LABS: INR 1.62 (0.9-1.15); Partial Thromboplastin Time 26.7 sec (22.64-33.71); Prothrombin Time 17.7 sec (9.37-12.3)
[2018-02-18 13:09] LABS: Alanine Aminotransferase 55 U/L (16-61); Albumin 1.8 g/dL (3.4-5.0); Anion Gap 11 (5-15); Aspartate Aminotransferase 396 U/L (15-37); BUN/Creatinine Ratio 66.7; Blood Urea Nitrogen 32 mg/dL (7-18); Calcium 9.3 mg/dL (8.5-10.1); Carbon Dioxide 22 mmol/L (21-32); Chloride 107 mmol/L (98-107); GFR African American 233 mL/min; GFR Non-African American 192 mL/min; Potassium 4.9 mmol/L (3.5-5.1); Sodium 140 mmol/L (136-145)
[2018-02-18 13:16] LABS: Glucose 12 mg/dL (74-106)
[2018-02-18] MEDS ORDERED: DEXTROSE 50% SYRINGE 50 ML IV ONE (13:18)
[2018-02-18 13:22] LABS: Alkaline Phosphatase 1165 U/L (45-117); Bilirubin, Total 1.8 mg/dL (0.2-1.0); Total Protein 7.3 g/dL (6.4-8.2)
[2018-02-18] MEDS ORDERED: DEXTROSE (50%) 50ML SYRG IV ONE ×2 (13:30→15:30)
[2018-02-18 17:45] VITALS: BP 92/52
[2018-02-18 17:52] VITALS: BP 92/52
[2018-02-18] MEDS: MORPHINE SULFATE 8mg/ml INJ SDV IV PRN ×3 (18:58→23:18)
[2018-02-18 22:00] VITALS: BP 94/55
[2018-02-19] MEDS: MORPHINE SULFATE 8mg/ml INJ SDV IV PRN ×7 (00:53→12:41)
[2018-02-19] MEDS: D5W 5% 1,000 ML IV SCH ×2 (01:15→14:35)
[2018-02-19 04:57] VITALS: BP 95/56
[2018-02-19 08:00] VITALS: BP 98/58
[2018-02-19 08:21] VITALS: BP 98/58
[2018-02-19 12:50] VITALS: BP 101/58
[2018-02-19 12:51] VITALS: BP 101/58
== END 2018-02-19 16:00 | disposition home health service (06) | DRG 424 ==
LOC: ER 10:12 → EDBD 10:12 → TELE 10:13 → TELE-CENTR 17:36
PROVIDERS: ADMIT Internal Medicine; ATTEND Internal Medicine
DX: E16.2 Hypoglycemia, unspecified (principal); J96.00 Acute respiratory failure, unspecified whether with hypoxia or hypercapnia; G93.40 Encephalopathy, unspecified; E43 Unspecified severe protein-calorie malnutrition; R18.8 Other ascites; C61 Malignant neoplasm of prostate; J45.909 Unspecified asthma, uncomplicated; Z51.5 Encounter for palliative care; R62.7 Adult failure to thrive; Z66 Do not resuscitate; Z85.46 Personal history of malignant neoplasm of prostate; Z85.05 Personal history of malignant neoplasm of liver; Z68.1 Body mass index [BMI] 19.9 or less, adult; Z88.1 Allergy status to other antibiotic agents; Z88.5 Allergy status to narcotic agent; Z85.118 Personal history of other malignant neoplasm of bronchus and lung; Z85.830 Personal history of malignant neoplasm of bone
CPT/HCPCS: 36415; 80053; 82962; 83880; 84484; 85025; 85610; 85730; 87081; 96361; 96374; J1642; J2270